=== PATIENT | male | born 1995 ===

== ENCOUNTER 2021-04-25 11:31 | Emergency (ER) | payer SELFPAY ==
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
--- NOTE | 2021-04-25 12:25 | NUR ---
SIDE RAILS UP X2. PT CONTINUALLY PULLING SHEET OVER HIS FACE.
[2021-04-25 12:33] LABS: BASOPHILS % (AUTO) 1 % (0-1); EOSINOPHILS % (AUTO) 2 % (1-7); LYMPHOCYTES % (AUTO) 20 % (22-44); MD NO; MEAN CORPUSCULAR HEMOGLOBIN 31.5 pg (27.5-34.5); MEAN CORPUSCULAR HGB CONC 34.7 g/dL (33.2-36.2); MEAN PLATELET VOLUME 6.4 fL (7.4-10.4); MONOCYTES % (AUTO) 10 % (2-9); NEUTROPHILS % (AUTO) 67 % (42-75); PLATELET COUNT 256 x10^3/uL (130-400); RED BLOOD COUNT 3.98 x10^6/uL (4.38-5.82); RED CELL DISTRIBUTION WIDTH 14.1 % (9.4-14.8)
[2021-04-25 12:46] LABS: ALANINE AMINOTRANSFERASE 26 U/L (12-78); ALBUMIN 3.7 g/dL (3.4-5.0); ANION GAP 6 mmol/L (5-15); CALCIUM 8.6 mg/dL (8.5-10.1); CHLORIDE 107 mmol/L (98-107)
[2021-04-25 12:51] LABS: ALKALINE PHOSPHATASE 85 U/L (45-117); BILIRUBIN,TOTAL 0.6 mg/dL (0.2-1.0); CREATININE 0.99 mg/dL (0.7-1.3); TOTAL PROTEIN 6.9 g/dL (6.4-8.2)
[2021-04-25 12:55] LABS: SALICYLATE LEVEL < 1.7 mg/dL (2.8-20.0)
--- NOTE | 2021-04-25 13:05 | NUR ---
PT REPORT FROM NED GIBBS RN. PT CARE TO BE ASSUMED.
--- NOTE | 2021-04-25 13:38 | NUR ---
PT RESTING ON GURNEY W/ SHEET OVER FACE. RESP EVEN & UNLABORED. PT CONTINUING TO REFUSE TO ANSWER QUESTIONS. SIDE RAILS UP X2.
--- NOTE | 2021-04-25 14:28 | NUR ---
PT REMINDED OF NEED FOR URINE SPECIMEN. PT REMAINS UNCOOPERATIVE. RESP EVEN & UNLABORED.
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
--- NOTE | 2021-04-25 14:58 | NUR ---
VOIDED SPECIMEN PROVIDED BY
[2021-04-25 15:17] LABS: AMPHETAMINE SCREEN, URINE Positive (Negative); BARBITURATE SCREEN, URINE Negative (Negative); BENZODIAZEPINE SCREEN, URINE Negative (Negative); CANNABINOID SCREEN, URINE Positive (Negative); COCAINE SCREEN, URINE Negative (Negative); METHADONE SCREEN, URINE Negative (Negative); OPIATE SCREEN, URINE Negative (Negative)
--- NOTE | 2021-04-25 16:45 | NUR ---
PT STANDING IN ROOM DOORWAY; REQUESTED A PAIR OF PANTS TO CHANGE INTO; PANTS PROVIDED.
[2021-04-25 16:50] VITALS: BP 114/70
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
--- NOTE | 2021-04-25 17:09 | NUR ---
PT FULLY DRESSED, HAS BELONGINGS, OBSERVED WALKING DOWN HALLWAY; STATES HE'S LOOKING FOR THE EXIT; WOULD NOT STOP WHEN DIRECTED. FINALLY HALTED IN CT HALLWAY. SPOKE W/ PT, WHO AGREED TO RETURN TO HIS ROOM. ACCOMPANIED PT TO ROOM. NOW INFORMED THAT PT WALKED OUT VIA AMBULANCE BAY.
== END 2021-04-25 17:14 | disposition left against medical advice (07) ==
LOC: EDBD 11:31 → ED 17:00
DX: R41.82 Altered mental status, unspecified (principal); R10.30 Lower abdominal pain, unspecified; F15.10 Other stimulant abuse, uncomplicated
CPT/HCPCS: 36415; 80053; 80299; 80307; 80320; 80329; 82140; 85025; 99285; G0480